=== PATIENT | male | born 1970 | race Caucasian/White ===

== ENCOUNTER 2023-12-27 10:17 | Emergency (ER) | payer OTHER, SELFPAY ==
[2023-12-27 10:31] VITALS: BP 166/110
[2023-12-27 10:59] LABS: % Basophils 0.8 % (0-2); % Eosinophils 0.7 % (0-6); % Immature Granulocytes 0.6 % (0-0.5); % Lymphocytes 14.2 % (20.5-51.1); % Monocytes 7.4 % (1.7-9.3); % Neutrophils 76.3 % (42.2-75.2); Absolute Basophils 0.1 10^3/uL (0-0.2); Absolute Eosinophils 0.1 10^3/uL (0-0.7); Absolute Immature Granulocytes 0.1 10^3/uL (0-0.05); Absolute Lymphocytes 1.4 10^3/uL (1.2-3.4); Absolute Monocytes 0.7 10^3/uL (0.1-0.6); Absolute Neutrophils 7.4 10^3/uL (1.4-6.5); Hematocrit 43.3 % (39.0-52.0); Hemoglobin 15.1 g/dL (13.0-18.0); Mean Corp Hgb Conc. 34.9 g/dL (33.0-37.0); Mean Corpuscular Hgb 29.4 pg (27.0-31.0); Mean Corpuscular Volume 84.2 fL (80.0-94.0); Mean Platelet Volume 9.5 fL (7.4-10.4); Nucleated Red Blood Cells % 0 % (-); Platelet Count 369 10^3/uL (130-400); Red Blood Cell Count 5.14 10^6/uL (4.70-6.10); Red Cell Dist. Width 12.5 % (11.5-14.5); White Blood Cell Count 9.6 10^3/uL (4.8-10.8)
[2023-12-27 11:16] LABS: ALT (SGPT) 56 U/L (0-50); AST (SGOT) 36 U/L (17-59); Albumin 5.2 g/dl (3.5-5.0); Alkaline Phosphatase 52 U/L (38-126); Blood Urea Nitrogen 22 mg/dl (9-20); Calcium 10.2 mg/dl (8.4-10.2); Carbon Dioxide 15 mmol/L (22-30); Chloride 103 mmol/L (98-107); Glucose 164 mg/dl (70-99); Lipase 82 U/L (23-300); Potassium 4.6 mmol/L (3.5-5.1); Sodium 139 mmol/L (135-145); Total Bilirubin 0.7 mg/dl (0.2-1.3); eGFR > 60.00
[2023-12-27 11:19] VITALS: BMI 27.9
[2023-12-27] MEDS: ZOFRAN 4 MG IV (12:13)
[2023-12-27] MEDS: TORADOL 30 MG IV (12:14)
--- NOTE | 2023-12-27 12:16 | ED.GENMED ---
History of Present Illness
General
Chief Complaint: Abdominal Pain
Source: patient
Time Seen by Provider: 12/27/23 11:57
History of Present Illness
History of Present Illness:
53-year-old male with no significant past medical history presenting the emergency department for evaluation of sudden onset right lower abdominal pain radiating into the right flank accompanied with nausea and vomiting as well as urinary urgency.
Patient states that despite feeling as if he has to go he is not having much urinary output. Denies any fevers, chills, rigors, dysuria, hematuria, bowel changes or any other concerns. Did not take anything for the pain prior to arrival. Denies
any history of similar. Social history and surgical history noncontributory.
Past History
Past History
ED Past Medical History: None
ED Past Surgical History: None
Social History
Tobacco: Non-smoker
Alcohol: Occasional
Drug: None
Personal:
Living: with family
Employment: Employed
Review of Systems
Review of Systems
All Other Systems: ROS reviewed and negative except as documented in HPI and ROS
Phy Exam
Physical Exam
Physical Exam:
GENERAL: Alert , appears very uncomfortable, having a difficult time sitting still
EYE: clear conjunctiva b/l
HEAD: NCAT
ENT: mmm.
CARDIAC: Regular rate and rhythm .
LUNGS: Clear breath sounds bilaterally, no acute respiratory distress, no wheezes/rales/rhonchi
ABDOMEN: Soft, no r/g, moderate right CVAT and tenderness across the lower portion of abdomen into the RLQ
NEUROLOGICAL: Alert and oriented
SKIN: Warm and dry, skin intact.
MUSCULOSKELETAL: well perfused.
PSYCH: Normal and appropriate interaction.
Scores
Heart Failure Risk
Heart Failure Risk Score: Not Applicable
Heart Score for Chest Pain Patients
STEMI patient?: Not applicable
Withdrawal Assessment of Alcohol
Withdrawal Assessment Completed?: Not applicable
Course
Orders/Labs/Results
Orders:
Orders
12/27/23 10:37
Complete Blood Count/With Diff Urgent
Comprehensive Metabolic Panel Urgent
Lipase Urgent
12/27/23 12:04
CT Abd/pel Without Iv Or Oral Urgent
Comment:
Reason For Exam: right flank pain, vomiting
Urinalysis Reflex To Culture Urgent
Date Specimen was Collected: 12/27/23
Time Specimen was Collected: 12:07
Ketorolac [Toradol] 30 mg IV NOW STA
Ondansetron Injectable [Zofran] 4 mg IV NOW STA
Abnormal Lab Results
12/27/23
10:37
Abs Immat Gran (auto) 0.1 H 10^3/uL
(0-0.05)
Absolute Neuts (auto) 7.4 H 10^3/uL
(1.4-6.5)
Absolute Monos (auto) 0.7 H 10^3/uL
(0.1-0.6)
Immature Gran % 0.6 H %
(0-0.5)
Neutrophils % 76.3 H %
(42.2-75.2)
Lymphocytes % 14.2 L %
(20.5-51.1)
Carbon Dioxide 15 L mmol/L
(22-30)
BUN 22 H mg/dl
(9-20)
Glucose 164 H mg/dl
(70-99)
ALT 56 H U/L
(0-50)
Albumin 5.2 H g/dl
(3.5-5.0)
12/27/23 10:37
12/27/23 10:37
Vital Signs
Initial and Last Documented VS:
Initial Vital Signs
Temp Pulse Resp BP Pulse Ox
97.6 F 74 20 166/110 100
12/27/23 10:31 12/27/23 10:31 12/27/23 10:31 12/27/23 10:31 12/27/23 10:31
Last Documented Vital Signs
Temp Pulse Resp BP Pulse Ox
97.6 F 74 20 157/64 94
12/27/23 10:31 12/27/23 10:31 12/27/23 10:31 12/27/23 13:44 12/27/23 13:30
MDM/Problems Addressed
Differential Diagnosis Includes:
renal/ureteral colic, cystitis, pyelonephritis, muscular etiology, appy
MDM/Problems Addressed:
53-year-old male presenting to the emergency department for evaluation of sudden onset right flank and right lower quadrant abdominal pain. Urinary urgency, nausea and vomiting since arriving to the ER. Symptoms seem to be most suggestive of
renal/ureteral colic. Labs have been initiated upon arrival. Will treat with Toradol, Zofran and fluids. CT of the abdomen pelvis ordered. Will send urinalysis.
*Radiology
Radiology exam reviewed: radiology read reviewed
*Pulse Oximetry
Patient hypoxic: no
*Critical Care Note
Total Time (30-74mins, 75-104mins- exclusive of procedures): Not Applicable
Patient Management
Escalation/DeEscalation of care consider admission/obs:
Patient CT scan shows a 2 mm kidney stone without any significant obstructive processes. Incidental liver findings discussed and printout of CT given. Prescription for Percocet, Flomax and Zofran provided. Patient is otherwise stable for discharge
home and aware of return precautions.
ED Attending Note
-
Portions of this chart may have been created with voice recognition software.� Occasional wrong word or��sound alike� substitutions may have occurred due to the inherent limitations of voice recognition software.
Discharge Plan
Departure
Patient Disposition: Home (Routine Discharge)
Date of Disposition: 12/27/23
Time of Disposition: :24
Patient with high blood pressure during this ER visit?: No
Discharge Problem:
Ureterolithiasis
Instructions: Kidney Stones (DC)
Prescriptions:
New
oxycodone-acetaminophen [Percocet] 5-325 mg tablet
1 tab PO Q6HPRN PRN (Reason: pain) Qty: 6 0RF
tamsulosin [Flomax] 0.4 mg capsule
0.4 mg PO DAILY Qty: 15 0RF
ondansetron 4 mg tablet,disintegrating
4 mg PO TIDPRN PRN (Reason: nausea/vomiting) Qty: 10 0RF
Referrals:
Latrell Mcginnis MD [Active] - (Urology)
Javid Mcintyre PA-C [Family Provider] -
Interventions
Interventions:
*Risk Screen - Suicide Last Done: 12/27/23 10:31
*General Assessment Last Done: 12/27/23 10:31
ED- Fall Risk Assessment Last Done: 12/27/23 11:19
*ED COVID-19 Vaccine History Last Done: 12/27/23 10:31
*Nursing Disposition Last Done: 12/27/23 13:48
MB-Vicizf-Gseqlbcdus Assessment Last Done: 12/27/23 11:19
Discharge Date and Time
Discharge Date/Time: 12/27/23 13:48
Print Language: [email or web address]
[2023-12-27 13:44] VITALS: BP 157/64
== END 2023-12-27 13:48 | disposition home or self-care (01) ==
LOC: EMR 10:17
PROVIDERS: Emergency Medicine; EMERGENCY PHYSICIAN Emergency Medicine; FAMILY PHYSICIAN Physician Assistant Medical
DX: N20.1 Calculus of ureter (principal); R10.31 Right lower quadrant pain; R11.2 Nausea with vomiting, unspecified; Z88.0 Allergy status to penicillin
CPT/HCPCS: 99284; 96374; 96375; 74176; 80053; 83690; 85025